=== PATIENT | female | born 1945 | race Two or more races ===

== ENCOUNTER 2022-09-26 06:00 | Day surgery (SDC) | payer OTHER | END 2022-09-26 11:35 | disposition home or self-care (01) | LOC: AMB-ENDOS 06:00 → CIR.AMB 14:30 | PROVIDERS: ATTEND Surgery | DX: D12.0 Benign neoplasm of cecum (principal); K57.30 Diverticulosis of large intestine without perforation or abscess without bleeding; K59.00 Constipation, unspecified; Z20.822 Contact with and (suspected) exposure to COVID-19 ==

== ENCOUNTER 2022-11-04 09:30 | Inpatient (IN) | payer OTHER ==
[~2022-11-04] VITALS: Ht 170.2 cm; Wt 90.7 kg
[2022-11-04] MEDS ORDERED: TOPROL XL50 M1 PO (12:29)
[2022-11-04] MEDS ORDERED: HYDROCHL PO (12:30)
[2022-11-11] MEDS ORDERED: HYDROCHLOROTHIA25 MG (08:05)
[2022-11-13] MEDS ORDERED: PEPCID AC20 MG PO (09:15)
[2022-11-13] MEDS ORDERED: HYOSCYAMINE0.125 M1 SL (09:15)
[2022-11-13] MEDS ORDERED: TRAM1TAB98 PO (09:16)
== END 2022-11-13 13:34 | disposition home or self-care (01) | DRG 331 ==
LOC: ADM 10:45 → EDSTATUS 10:45 → O/R 11-10 06:38 → SURH 11-10 09:00
PROVIDERS: ADMIT Surgery; ATTEND Surgery
PROC: 0DBU4ZZ Excision of Omentum, Percutaneous Endoscopic Approach (ICD-10-PCS; 2022-11-10)
PROC: 07BB4ZZ Excision of Mesenteric Lymphatic, Percutaneous Endoscopic Approach (ICD-10-PCS; 2022-11-10)
PROC: 0DQ84ZZ Repair Small Intestine, Percutaneous Endoscopic Approach (ICD-10-PCS; 2022-11-10)
PROC: 0DTF4ZZ Resection of Right Large Intestine, Percutaneous Endoscopic Approach (ICD-10-PCS; principal; 2022-11-10 09:00)
DX: D12.0 Benign neoplasm of cecum (principal); N73.6 Female pelvic peritoneal adhesions (postinfective); N99.4 Postprocedural pelvic peritoneal adhesions; R59.0 Localized enlarged lymph nodes; Z20.822 Contact with and (suspected) exposure to COVID-19